=== PATIENT | male | born 1985 | race Caucasian/White ===

== ENCOUNTER → 2019-04-11 | Day surgery (SDC) | payer OTHER ==
[2019-04-10 09:00] VITALS: BMI 61.2
[~2019-04-11] MED LIST: Glycopyrrolate 0.2 MG/ML 5 ML SYRINGE ONE; Ketamine 50 MG/ML (10ML VIAL) ONE; Lidocaine 1% PF 5 ML VIAL ONE; Midazolam HCl 2 mg/2 ml Vial ONE; PROPOFOL 200 MG/20 ML VIAL ONE
--- NOTE | 2019-04-11 16:01 | OP ---
DATE OF PROCEDURE: 04/11/2019 PROCEDURE PERFORMED: Colonoscopy with snare polypectomy and biopsies. PREMEDICATION: Given by Anesthesiology Department. PREPROCEDURE DIAGNOSES: 1. Chronic unexplained diarrhea. 2. Negative stool studies. POSTPROCEDURE DIAGNOSES: 1. Transverse colon polyp, 6 mm sessile. 2. Normal mucosa throughout the colon. DESCRIPTION OF PROCEDURE: Written consents were obtained prior to procedure. After adequate sedation, forward-viewing endoscope was advanced to the cecum. The quality of the bowel prep was good. The ileocecal valve and appendiceal orifice were visualized and appeared normal. The mucosa throughout the colon appeared normal. In the transverse colon, a 6 mm sessile polyp was removed with snare electrocautery with good hemostasis. Random biopsies were obtained from the right colon, transverse colon, and the left colon. The ascending, hepatic flexure, transverse colon, splenic flexure, descending colon, and rectosigmoid colon all appeared normal including retroflexion. The patient tolerated the procedure well. ASSESSMENT: 1. Transverse colon polyp, status post polypectomy. 2. Otherwise, normal colon exam. RECOMMENDATION: Await biopsy result to evaluate for any microscopic colitis. Job ID: [id number]
== END ==
LOC: SDC 07:13
PROVIDERS: ATTEND Internal Medicine Gastroenterology
PROC: 0DBL8ZZ Excision of Transverse Colon, Via Natural or Artificial Opening Endoscopic (ICD-10-PCS; principal; 2019-04-11)
PROC: 0DBG8ZX Excision of Left Large Intestine, Via Natural or Artificial Opening Endoscopic, Diagnostic (ICD-10-PCS; principal; 2019-04-11)
PROC: 0DBL8ZX Excision of Transverse Colon, Via Natural or Artificial Opening Endoscopic, Diagnostic (ICD-10-PCS; principal; 2019-04-11)
PROC: 0DBF8ZX Excision of Right Large Intestine, Via Natural or Artificial Opening Endoscopic, Diagnostic (ICD-10-PCS; principal; 2019-04-11)
DX: K63.5 Polyp of colon (principal); K52.9 Noninfective gastroenteritis and colitis, unspecified; Z87.891 Personal history of nicotine dependence
CPT/HCPCS: 88305; J2001; J2250; J2704